=== PATIENT | male | born 1965 | race African-American/Black ===

== ENCOUNTER 2018-10-17 15:34 | Outpatient (CLI) | payer BC ==
[2018-10-17 16:52] LABS: Anion Gap 12 mmol/L (10-20); BUN (Urea Nitrogen) 18 mg/dL (8.4-25.7); Calc. Creatinine Clearance 0 mL/min (70-130); Calcium 9.8 mg/dL (7.8-10.44); Carbon Dioxide 23 mmol/L (22-29); Chloride 109 mmol/L (98-107); Estimated GFR-MDRD 69; Glucose 85 mg/dL (70-105); Potassium 4.3 mmol/L (3.5-5.1); Sodium 140 mmol/L (136-145)
[2018-10-17 18:04] LABS: Band 1 % (5-11); Hemoglobin 14.6 g/dL (14.0-18.0); Lymphocytes 39 % (21-51); MDiff Complete? YES; Mean Corpuscular HGB CONC 33.5 g/dL (32.0-36.0); Mean Corpuscular Hemoglobin 32.5 pg (27.0-31.0); Mean Platelet Volume 8.2 fL (7.4-10.4); Monocytes 6 % (0-10); Neutrophil 54 % (42-75); Platelet Count 165 thou/uL (130-400); Platelet Morphology Comment Appears Adequate; RBC Distribution Width 12.2 % (11.5-14.5); RBC Morphology Normal; Red Blood Cell (RBC) Count 4.49 mill/uL (4.70-6.10)
== END 2018-10-17 15:35 | disposition home or self-care (01) ==
LOC: LABBT 15:34
PROVIDERS: ATTEND Orthopaedic Surgery
DX: Z01.818 Encounter for other preprocedural examination (principal); S83.206A Unspecified tear of unspecified meniscus, current injury, right knee, initial encounter
CPT/HCPCS: 80048; 85025; 93005; 93010

== ENCOUNTER 2018-10-19 08:24 | Day surgery (SDC) | payer BC ==
[2018-10-17 15:51] VITALS: BMI 37.3
[2018-10-19] MEDS ORDERED: ceFAZolin Sodium (SDC) 2 GM/100 ML BAG ONE (09:26)
[2018-10-19] MEDS ORDERED: PROPOFOL 20 ML ONE (09:52)
[2018-10-19] MEDS ORDERED: Fentanyl 100 MCG/2 ML VIAL ONE ×2 (10:35→12:17)
[2018-10-19] MEDS ORDERED: HYDROcodone/Acetaminophen 5/325 mg Tablet ONE (14:24)
--- NOTE | 2018-10-20 10:11 | OP ---
DATE OF PROCEDURE: 10/19/2018 PREOPERATIVE DIAGNOSIS: Right knee medial meniscus tear. POSTOPERATIVE DIAGNOSES: 1. Right knee posterior horn medial meniscus tear. 2. 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 PROCEDURES PERFORMED: 1. Right knee arthroscopy with partial medial meniscectomy. 2. Chondroplasty of medial femoral condyle and patella. MILK TANKER DRIVER: None. ESTIMATED BLOOD LOSS: Minimal. COMPLICATIONS: None. ANESTHESIA: The patient had general anesthetic, as well as a local knee block with recovery in stable condition. INDICATIONS: A 53-year-old male presented with problems of swelling, pain, and catching of the knee. At this time, he has failed nonoperative treatment and wished to have surgery. DESCRIPTION OF PROCEDURE: After all appropriate consent forms were explained and signed, he was taken to the operating room and at this time was given general anesthetic. Once the level of anesthesia was appropriate, tourniquet was placed in the right thigh and leg was then placed in arthroscopic leg ceballos. The limb was then prepped and draped in standard surgical fashion. The limb was exsanguinated, tourniquet was taken up to 300 mmHg. Inferolateral portal was established. Scope was placed into the knee joint. Needle localization technique was then used to make a medial working portal. Diagnostic arthroscopy commenced in the notch. The ACL and PCL were probed, found to be intact. Medial compartment was evaluated and immediately noted a large chondral lesion on the medial femoral condyle. It was approximately 8-10 mm wide, but it was about 2 to 2.5 cm anterior to posterior. Large unstable chondral flaps were taken down to a stable base using the chondrotome. Once this was done, we were then able to evaluate the meniscus. The patient had a complex tear of the posterior horn medial meniscus, as well as a flap component where the posterior horn turns into the body. Both of these areas were taken care of using meniscal biter and shaver, leaving all intact tissue alone but removing the torn tissue. The lateral compartment was then evaluated and found to be in excellent condition. The patellofemoral joint showed a small area in the superior facet of the patella to have some unstable chondral flaps, which were gently debrided with chondrotome. The remaining patella look good. There was a small area in the center of the trochlea with some cartilage loss, but no treatment was needed. We went through medial and lateral gutters. There was some significant synovitic changes which were debrided, but otherwise was in good condition. At this time, we then removed the scope, drained the knee, we closed each portal with simple nylon stitch. Bulky sterile dressing was applied and tourniquet was let down. Toes pinked up nicely. The patient was awakened and taken to recovery room in stable condition. All counts were correct at the end of the case and he did receive preoperative IV antibiotics. Job ID: [id number] [facility]
== END 2018-10-19 14:45 | disposition home or self-care (01) ==
LOC: SDC 08:24
PROVIDERS: ATTEND Orthopaedic Surgery
PROC: 0SBC4ZZ Excision of Right Knee Joint, Percutaneous Endoscopic Approach (ICD-10-PCS; principal; 2018-10-19)
DX: S83.231A Complex tear of medial meniscus, current injury, right knee, initial encounter (principal); M94.261 Chondromalacia, right knee; I10 Essential (primary) hypertension; M10.9 Gout, unspecified; Z91.013 Allergy to seafood; Z79.899 Other long term (current) drug therapy
CPT/HCPCS: J0690; J2704; J3010